=== PATIENT | male | born 1990 | race Caucasian/White ===

== ENCOUNTER 2018-02-10 14:33 | Inpatient (IN) ==
[2018-02-10] MEDS ORDERED: Sod Chloride 0.9% Inj 1,000 ML IV.SIG ONE (14:38)
[2018-02-10] MEDS ORDERED: Naloxone Inj 2 MG/2 ML Vial IV.PUSH ONE (14:38)
--- NOTE | 2018-02-10 14:41 | ED ---
HPI General Chief Complaint: Overdose Stated Complaint: Medical Time Seen by Provider: 02/10/18 14:56 Source: patient and EMS Mode of arrival: EMS Limitations: altered mental status History of Present Illness HPI Narrative: Patient arrives by EMS when he was found to be unresponsive in a truck. He is 27 years old. He denies accidental or intentional drug ingestion and states that he is very sleepy alone. Pt denies drug/alcohol abuse in ER. EMS was preparing to intubate when patient awoke and started speaking revealing HPI as noted. Prior records reveal patient was seen here twice in the past 10 days for heroin overdose. It is reported that he recently broke up with his girlfriend and has had deaths in the family. Vague suicidal ideation reported to prior ED provider. Holt Act started by the undersigned. MD complaint: Reports accidental overdose Onset (ago): unknown Intent: unwilling to say Treatments Prior to Arrival: oxygen Related Data Home Medications Medication Instructions Recorded Confirmed lorazepam [Ativan] 1 mg PO BID 02/11/18 02/11/18 venlafaxine 75 mg PO DAILY 02/11/18 02/11/18 Allergies Allergy/AdvReac Type Severity Reaction Status Date / Time No Known Allergies Allergy Verified 02/11/18 18:51 Review of Systems ROS Unobtainable ROS Unobtainable: unobtainable due to mental condition and unobtainable due to mental status PMFSH Social History Social History Substance History: Active Abuse Second Hand Smoke Exposure: No Smoking Status: Current every day smoker Tobacco Type: Cigarettes How Often Do You Have a Drink Containing Alcohol: Monthly or less Recent Travel in [facility] within the Last 8 Weeks: No Recent Out of Country Travel within the Last 8 Weeks: No Exam Narrative Exam Narrative: GENERAL: Well-nourished well-developed 27-year-old male GCS 13 ( motor 6, verbal 4, eyes 3) SKIN: Perioral cyanosis present. Skin is otherwise warm and intact. HEAD: Atraumatic. Normocephalic. EYES: Pupils are about 3 mm bilaterally and responsive to light. ENT: No nasal bleeding or discharge. Mucous membranes pink and moist. NECK: Trachea midline. No JVD. CARDIOVASCULAR: Regular rate and rhythm. No murmur appreciated. RESPIRATORY: Respiratory rate is approximately 12. Breath sounds are present bilaterally. GASTROINTESTINAL: Abdomen soft, non-tender, nondistended. Hepatic and splenic margins not palpable. MUSCULOSKELETAL: No obvious deformities. No clubbing. No cyanosis. No edema. NEUROLOGICAL: GCS 13. No focal cranial nerve deficit. Pupils equal and reactive. Speech is somewhat slurred consistent with polysubstance overdose PSYCHIATRIC: Unable to determine. Course Initial Documented Vital Signs Pulse Oximetry 98 02/10/18 14:40 Last Documented Vital Signs Temperature 98.3 F 02/12/18 05:17 Pulse Rate 62 02/12/18 05:17 Respiratory Rate 16 02/12/18 05:17 Blood Pressure 110/71 02/12/18 05:17 Pulse Oximetry 98 02/12/18 05:17 Sign Out Sign Out Data: Patient Sign Out occurred on 02/10/18 at 15:10. Patient's care was discussed, and care was transferred from Jose F Park MD to Mandie Choi MD. Sign Out Comment: Patient arrives as an opioid overdose. This is his third overdose in 10 days. He has psychiatric risk factors. Holt Act form signed by me. Anticipate the patient be medically clear. In this scenario I would restrain the patient against his will to stay here and be evaluated such that he does not end his life unintentionally or intentionally. Last updated by Jose F Park MD at 02/10/18 14:58 Post-Handoff Eval: Patient signed out to me, Dr. Choi, by Dr. Park, at 1500. Patient reports "mental health issues." He was placed under a Holt Act by Dr. Park. He is resting comfortably in the ED. Labs show low potassium and calcium, this was replaced. Patient observed without further need for Narcan, he continued to maintain his airway and remained awake and alert. He will be medically cleared for psychiatric screening. Medical Decision Making MDM Narrative Medical decision making narrative: The patient arrives following heroin overdose twice prior in the past 10 days both times requiring an ED visit. He arrives again today after he was found unresponsive in a parking lot. The patient received Narcan and his pulse went from 90-130. We have an ABG revealing a PCO2 of 65. There is a reasonable concern for imminent danger to self. Holt Act paperwork completed by the undersigned. Psych screen ordered along with routine blood work. Case discussed with oncoming provider at 3 PM. Medical clearance is anticipated. Medical Screen Exam Complete: Yes Emergency Medical Condition: Yes Differential Diagnosis Differential Diagnosis: Altered mental status/psychosis due to infection/ environmental exposure/metabolic abnormality, polypharmacy, alcohol abuse/ intoxication, illicit or prescribed drug abuse, malingering/secondary gain, non- organic psychiatric disease Lab Data Lab results reviewed: Yes I reviewed the patient's lab results. Result diagrams: 02/10/18 14:43 02/10/18 14:43 Lab Results 02/10/18 02/10/18 02/10/18 Range/Units 14:30 14:43 14:43 WBC 9.9 D (4.0-11.0) th/mm3 RBC 4.53 (4.50-5.90) mil/mm3 Hgb 15.0 (13.0-17.0) gm/dL Hct 40.2 (39.0-51.0) % MCV 88.8 (80.0-100.0) fL MCH 33.0 (27.0-34.0) pg MCHC 37.2 H (32.0-36.0) % RDW 12.9 (11.6-17.2) % Plt Count 279 (150-450) th/mm3 MPV 9.0 (7.0-11.0) fL Prelim Diff (Auto) Slide review pending Neut % (Auto) 67.4 (16.0-70.0) % Lymph % (Auto) 23.3 (9.0-44.0) % Jack % (Auto) 6.9 (0.0-8.0) % Eos % (Auto) 1.8 (0.0-4.0) % Baso % (Auto) 0.6 (0.0-2.0) % Neut # (Auto) 6.7 (1.8-7.7) th/mm3 Lymph # (Auto) 2.3 (1.0-4.8) th/mm3 Jack # (Auto) 0.7 (0.0-0.9) th/mm3 Eos # (Auto) 0.2 (0.0-0.4) th/mm3 Baso # (Auto) 0.1 (0.0-0.2) th/mm3 WBC Differential . Diff Scan Auto diff confirmed Differential Comment . Platelet Estimate Normal (Normal) Platelet Morphology Normal (Normal) Ovalocytes 1+ H (None) Puncture Site Right radial Patient Temperature 98.6 O2 Saturation 87 L* (90-100) % ABG pH 7.26 L* (7.380-7.420) ABG pCO2 65 H* (38-42) mmHg ABG pO2 72 (61-120) mmHg ABG HCO3 29 H (22-26) mmol/L ABG O2 Content 17.8 (12.0-20.0) Vol % ABG Base Excess 2.2 H (-2-2) mmol/L ABG Methemoglobin 0.7 (0-2) % Lars Test Present Hemoglobin 14.6 (12.0-16.0) G/DL Carboxyhemoglobin 5.9 H* (0-4) % O2 Delivery Device Nasal cannula Liter Flow 3.00 L/M Critical Value Yes Sodium 145 (136-145) meq/L Potassium 3.1 L (3.5-5.1) meq/L Chloride 113 H (98-107) meq/L Carbon Dioxide 22.9 (21.0-32.0) meq/L Anion Gap 9 (5-15) meq/L BUN 13 (7-18) mg/dL Creatinine 0.92 (0.60-1.30) mg/dL Estimated GFR Greater than 89 (>89) mL/min Random Glucose 93 (74-106) mg/dL Calcium 6.7 L* D (8.5-10.1) mg/dL Prot Corrected Calcium 7.5 L (8.5-10.1) mg/dL Magnesium 1.4 L (1.5-2.5) mg/dL Total Bilirubin 0.4 (0.2-1.0) mg/dL AST 10 L (15-37) U/L ALT 18 (12-78) U/L Alkaline Phosphatase 53 (45-117) U/L Troponin I Less than 0.02 L (0.02-0.05) ng/mL Total Protein 5.5 L D (6.4-8.2) g/dL Albumin 2.6 L D (3.4-5.0) g/dL Lipase 62 L (73-393) U/L Salicylates (2.8-20.0) mg/dL Urine Opiates Screen (Neg) Acetaminophen Less than 2.0 L (10.0-30.0) mcg/mL Ur Barbiturates Screen (Neg) Ur Amphetamines Screen (Neg) U Benzodiazepines Scrn (Neg) Urine Cocaine Screen (Neg) U Cannabinoids Screen (Neg) Serum Alcohol Less than 3 (0-5) mg/dL 02/10/18 02/10/18 02/11/18 Range/Units 14:43 15:40 09:50 WBC (4.0-11.0) th/mm3 RBC (4.50-5.90) mil/mm3 Hgb (13.0-17.0) gm/dL Hct (39.0-51.0) % MCV (80.0-100.0) fL MCH (27.0-34.0) pg MCHC (32.0-36.0) % RDW (11.6-17.2) % Plt Count (150-450) th/mm3 MPV (7.0-11.0) fL Prelim Diff (Auto) Neut % (Auto) (16.0-70.0) % Lymph % (Auto) (9.0-44.0) % Jack % (Auto) (0.0-8.0) % Eos % (Auto) (0.0-4.0) % Baso % (Auto) (0.0-2.0) % Neut # (Auto) (1.8-7.7) th/mm3 Lymph # (Auto) (1.0-4.8) th/mm3 Jack # (Auto) (0.0-0.9) th/mm3 Eos # (Auto) (0.0-0.4) th/mm3 Baso # (Auto) (0.0-0.2) th/mm3 WBC Differential Diff Scan Differential Comment Platelet Estimate (Normal) Platelet Morphology (Normal) Ovalocytes (None) Puncture Site Left radial Patient Temperature 98.6 O2 Saturation 94 (90-100) % ABG pH 7.37 L (7.380-7.420) ABG pCO2 47 H (38-42) mmHg ABG pO2 178 H (61-120) mmHg ABG HCO3 26 (22-26) mmol/L ABG O2 Content 18.1 (12.0-20.0) Vol % ABG Base Excess 1.6 (-2-2) mmol/L ABG Methemoglobin 0.8 (0-2) % Lars Test Present Hemoglobin 13.4 (12.0-16.0) G/DL Carboxyhemoglobin 4.6 H (0-4) % O2 Delivery Device Liter Flow L/M Critical Value No Sodium (136-145) meq/L Potassium (3.5-5.1) meq/L Chloride (98-107) meq/L Carbon Dioxide (21.0-32.0) meq/L Anion Gap (5-15) meq/L BUN (7-18) mg/dL Creatinine (0.60-1.30) mg/dL Estimated GFR (>89) mL/min Random Glucose (74-106) mg/dL Calcium (8.5-10.1) mg/dL Prot Corrected Calcium (8.5-10.1) mg/dL Magnesium (1.5-2.5) mg/dL Total Bilirubin (0.2-1.0) mg/dL AST (15-37) U/L ALT (12-78) U/L Alkaline Phosphatase (45-117) U/L Troponin I (0.02-0.05) ng/mL Total Protein (6.4-8.2) g/dL Albumin (3.4-5.0) g/dL Lipase (73-393) U/L Salicylates 2.4 L (2.8-20.0) mg/dL Urine Opiates Screen Pos H (Neg) Acetaminophen (10.0-30.0) mcg/mL Ur Barbiturates Screen Neg (Neg) Ur Amphetamines Screen Neg (Neg) U Benzodiazepines Scrn Pos H (Neg) Urine Cocaine Screen Neg (Neg) U Cannabinoids Screen Neg (Neg) Serum Alcohol (0-5) mg/dL Discharge Plan Discharge Disposition Patient Disposition: 30 Still Patient Physicians Team ED Provider: Mandie Choi Primary Care Provider: UNKNOWN, Rxs /Orders / Referrals /Forms Prescriptions: No Action venlafaxine 75 mg Capsule,Extended Release 24hr 75 mg PO DAILY RF: 0 lorazepam [Ativan] 1 mg Tablet 1 mg PO BID RF: 0 Discharge Interventions Interventions: Vital Signs Last Done: 02/12/18 05:17 Status ED Status: Medically Cleared
[2018-02-10 14:51] LABS: ABG Base Excess 2.2 mmol/L (-2-2); ABG PCO2 65 mmHg (38-42); ABG PO2 72 mmHg (61-120)
[2018-02-10 15:03] LABS: Baso # (Auto) 0.1 th/mm3 (0.0-0.2); Baso % (Auto) 0.6 % (0.0-2.0); Eos # (Auto) 0.2 th/mm3 (0.0-0.4); Eos % (Auto) 1.8 % (0.0-4.0); Hematocrit 40.2 % (39.0-51.0); Lymph # (Auto) 2.3 th/mm3 (1.0-4.8); Lymph % (Auto) 23.3 % (9.0-44.0); Mean Corpuscular Volume 88.8 fL (80.0-100.0); Mono # (Auto) 0.7 th/mm3 (0.0-0.9); Mono % (Auto) 6.9 % (0.0-8.0); Neut # (Auto) 6.7 th/mm3 (1.8-7.7); Neut % (Auto) 67.4 % (16.0-70.0); Platelet Count 279 th/mm3 (150-450); Red Blood Count 4.53 mil/mm3 (4.50-5.90); Red Cell Distribution Width 12.9 % (11.6-17.2); White Blood Count 9.9 th/mm3 (4.0-11.0)
[2018-02-10 15:06] LABS: Mean Corpuscular HGB Conc 37.2 % (32.0-36.0)
[2018-02-10 15:16] LABS: Alanine Aminotransferase 18 U/L (12-78); Albumin 2.6 g/dL (3.4-5.0); Anion Gap 9 meq/L (5-15); Aspartate Aminotransferase 10 U/L (15-37); Blood Urea Nitrogen 13 mg/dL (7-18); Calcium 6.7 mg/dL (8.5-10.1); Carbon Dioxide 22.9 meq/L (21.0-32.0); Chloride 113 meq/L (98-107); Glomerular Filtration Rate Greater Than 89 mL/min (>89); Glucose,Random 93 mg/dL (74-106); Lipase 62 U/L (73-393); Magnesium 1.4 mg/dL (1.5-2.5); Potassium 3.1 meq/L (3.5-5.1); Sodium 145 meq/L (136-145)
[2018-02-10 15:23] LABS: Total Protein 5.5 g/dL (6.4-8.2)
[2018-02-10 15:24] LABS: Alkaline Phosphatase 53 U/L (45-117)
[2018-02-10] MEDS ORDERED: Calcium Carbonate 500 MG Tablet PO ONE (15:29)
[2018-02-10 15:30] LABS: Ovalocytes 1+; Platelet Estimate Normal (Normal); Platelet Morphology Normal (Normal)
[2018-02-10 16:03] LABS: ABG Base Excess 1.6 mmol/L (-2-2); ABG PCO2 47 mmHg (38-42); ABG PO2 178 mmHg (61-120)
[2018-02-11 10:26] LABS: Amphetamine Screen,Urine Neg (Neg); Barbiturate Screen,Urine Neg (Neg); Cannabinoid Screen,Urine Neg (Neg); Cocaine Screen,Urine Neg (Neg)
[2018-02-11 11:04] LABS: Opiate Screen,Urine Pos (Neg)
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
[2018-02-12] MEDS ORDERED: LORazepam 1 MG Tablet PO ONE (17:43)
--- NOTE | 2018-02-13 13:01 | P.CONPSY ---
Provisional Diagnosis Admission Date: February 10, 2018 14:33 [place] I.: 1. Major depressive disorder, recurrent, severe without psychotic features 2. Opioid use disorder [place] II.: Deferred History of Present Illness Service: Psychiatry Consult date: 02/13/18 Requesting Physician: Jose F Park Reason for Consult: Holt Act Primary Care Provider: UNKNOWN History of Present Illness: Mr. Mccarty is a 27-year-old male with a reported history of depression who presented initially to the ED in the setting of opioid overdose, his third in the past 2 weeks it appears. Patient was evaluated by the psychiatric nurse practitioner who continued the Holt act initiated by the ED provider and obtained concerning collateral information from the patient's father. Electronic medical record reviewed. Patient seen and examined. Chart reviewed. Case discussed with nurse in the J pod. Nurse reports that attempts have been made to find the patient an inpatient psychiatric bed under the Holt act without success so far. On my examination today, the patient becomes increasingly tearful describing his multiple stressors including recent breakup with girlfriend and father's struggle with colorectal cancer. He tells me that he has fallen "into a really deep depression." He endorses anhedonia and seems quite withdrawn. He endorses social withdrawal and says that he has stayed in his apartment for a week at a time since the onset of this episode. He says that he has turned to heroin use to try to manage his depressive symptoms. He presently denies suicidal ideation but seems unreliable to contract for safety. No hypomanic or manic symptoms. He denies any audiovisual hallucinations. No delusional material elicited. The remainder of the psychiatric ROS is negative. Patient denies any symptoms of opioid withdrawal but does report some SNRI withdrawal symptoms. No other acute physical complaints. Patient is requesting discharge from the ED. Past psychiatric history: Patient reports a history of depression. He follows at the [facility] and his dose of Effexor was reportedly recently increased to 150 mg daily. He does report some withdrawal symptoms from being without his Effexor. He denies a history of psychiatric admissions or suicide attempts. Family history: The patient denies a family history of serious mental illness or suicide. Chemical dependency history: The patient reports a history of Suboxone use in the past. He started using heroin for the first time in his life a few weeks ago, and each of the 3 times that he has used it he has become so intoxicated as to require the ED visit. He clearly states that he started using heroin because of his depression. 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 He recently broke up with his girlfriend. He denies any access to guns or firearms. He denies any particular scientologist or spiritual believes. Review of Systems All other systems reviewed negative except as stated in HPI PMFSH - History History Provided By: Patient - Medical History Medical History: Medical History (Last Reviewed 02/10/18 @ 14:39 by Giselle Wilkinson) Drug abuse and dependence - Surgical History Surgical History: Surgical History (Last Reviewed 02/10/18 @ 14:39 by Giselle Wilkinson) No pertinent past surgical history - Tobacco History Second Hand Smoke Exposure: No Tobacco Use In Past 30 Days: Yes Smoking Status: Current every day smoker Tobacco Type: Cigarettes - Alcohol History How Often Do You Have a Drink Containing Alcohol: Monthly or less - Substance Use History Substance History: Active Abuse - Substance Use Type Heroin Status: Active Reason for Use: Get High - Travel History Recent Travel in the USA Within the Last 8 Weeks: No Recent Travel Out of the Country Within the Last 8 Weeks: No - Immunization History Tetanus Immunization: <5 Years Medications and Allergies Active Medications: Active Medications Sodium Chloride (Ns Flush) 2 ml IV.FLUSH PRN PRN PRN Reason: FLUSH AFTER USING IV ACCESS Allergies Allergy/AdvReac Type Severity Reaction Status Date / Time No Known Allergies Allergy Verified 02/11/18 18:51 Home Medications Medication Instructions Recorded Confirmed Type lorazepam [Ativan] 1 mg PO BID 02/11/18 02/11/18 History venlafaxine 75 mg PO DAILY 02/11/18 02/11/18 History Exam Vital signs: Vital Signs 02/12/18 13:27 02/12/18 17:23 02/12/18 18:22 Temperature 97.9 F Pulse Rate 78 79 80 Respiratory Rate 18 18 18 Blood Pressure 128/71 119/76 107/66 Pulse Oximetry 99 100 02/12/18 22:16 02/13/18 06:21 Temperature Pulse Rate 58 L 94 H Respiratory Rate 16 16 Blood Pressure 109/60 101/58 L Pulse Oximetry 100 100 Narrative: Physical examination was completed by the ED provider. On my examination today , the patient appears to be in no acute physical distress. No signs of intoxication or withdrawal noted. No motor abnormalities noted. Labs and vital signs reviewed: Laboratory Tests 02/10/18 02/10/18 02/11/18 14:43 14:43 09:50 WBC 9.9 D Hgb 15.0 Plt Count 279 Sodium 145 Potassium 3.1 L Chloride 113 H Carbon Dioxide 22.9 BUN 13 Creatinine 0.92 Estimated GFR Greater than 89 AST 10 L ALT 18 Alkaline Phosphatase 53 Urine Opiates Screen Pos H U Benzodiazepines Scrn Pos H Serum Alcohol Less than 3 Mental Status Examination Appearance: Disheveled Consciousness: Alert Orientation: x4 Motor Activity: Normal gait Speech: Unremarkable Language: Adequate Fund of Knowledge: Adequate Attention and Concentration: Adequate Memory: Unremarkable Mood: Anxious, Other (Depressed) Affect: Other (Restricted, tearful at times) Thought Process & Associations: Intact, Logical, Goal directed Thought Content: Appropriate Hallucination Type: None Delusion Type: None Suicidal Ideation: No (Unreliable to contract for safety) Suicidal Plan: No Suicidal Intention: No Homicidal Ideation: No Homicidal Plan: No Homicidal Intention: No Insight: Poor Judgment: Impulsive Assessment and Plan - Assessment (1) Major depressive disorder Code(s): F32.9 - Major depressive disorder, single episode, unspecified Status : Acute (2) Opioid use disorder Code(s): F11.99 - Opioid use, unspecified with unspecified opioid-induced disorder Status: Acute - Plan Plan: 27-year-old male with psychiatric history as detailed above who is presently in the ED under a Holt act. Patient by his own report has recently started using heroin to manage depressive symptoms resulting in 3 overdoses of sufficient severity to require emergent intervention. Even if these were not intentional, suicidal overdoses, patient is placing himself at high risk for self-harm by this behavior. Inasmuch as his heroin use is secondary to his depressive symptomatology, I think ongoing evaluation and management under the Holt act is appropriate. Patient's Holt act will shortly without available inpatient psychiatric bed. Given ongoing concerns for impairment in safety, I will initiate a petition for involuntary psychiatric hospitalization and have consulted Dr. Samuel for a second opinion. I concur with the psychiatric nurse practitioner that a dual diagnosis unit would be the ideal placement for this patient, although initiation of a petition for involuntary psychiatric hospitalization may necessitate admission to one of the inpatient psychiatric unit here when capacity becomes available. Patient reports no opioid withdrawal symptoms but does report SNRI withdrawal symptoms, and I have taken the liberty of resuming his Effexor now. --Holt act remains in place. I have initiated a petition for involuntary psychiatric hospitalization under the Holt act and have consulted for a second opinion. --Case discussed with nurse and J bonny who continues to try to arrange for inpatient psychiatric services for this patient. Recommend continued close observation in the ED until transfer to inpatient psychiatric bed can be arranged. Justification for Continued Inpatient Stay: N/A. (1) Major depressive disorder Qualifiers: Major depression recurrence: recurrent Active/Remission status: currently active Major depression episode severity: severe Psychotic features: without psychotic features Qualified Code(s): F33.2 - Major depressive disorder, recurrent severe without psychotic features
--- NOTE | 2018-02-13 13:30 | P.PNPSY ---
Subjective Remarks: This is a request for second opinion. Admission note was reviewed and I agree with the history. Patient was seen and case was discussed with nursing. Patient is minimizing his recent overdoses. He does admit to recent depressed mood and various stressors including school. Per record, pt made suicidal statements to the ER doctor. Mental Status Examination Appearance: Disheveled Consciousness: Alert Orientation: x4 Motor Activity: Normal gait Speech: Unremarkable Language: Adequate Fund of Knowledge: Adequate Attention and Concentration: Adequate Memory: Unremarkable Mood: Anxious, Other (Depressed) Affect: Other (Restricted, tearful at times) Thought Process & Associations: Intact, Logical, Goal directed Thought Content: Appropriate Hallucination Type: None Delusion Type: None Suicidal Ideation: Yes (Unreliable to contract for safety) Suicidal Plan: No Suicidal Intention: No Homicidal Ideation: No Homicidal Plan: No Homicidal Intention: No Insight: Poor Judgment: Impulsive Assessment and Plan - Assessment (1) Major depressive disorder Code(s): F32.9 - Major depressive disorder, single episode, unspecified Status : Acute (2) Opioid use disorder Code(s): F11.99 - Opioid use, unspecified with unspecified opioid-induced disorder Status: Acute - Plan Plan: I agree with the first opinion to continue petition. Criteria include severe depression, concern for lack of self-care, recent overdoses, and ineffective psychiatric medication at home. Justification for Continued Inpatient Stay: Patient would decompensate in a less restrictive setting (1) Major depressive disorder Qualifiers: Major depression recurrence: recurrent Active/Remission status: currently active Major depression episode severity: severe Psychotic features: without psychotic features Qualified Code(s): F33.2 - Major depressive disorder, recurrent severe without psychotic features
[2018-02-13] MEDS: Venlafaxine XR 75 MG Capsule PO SCH (14:32)
[2018-02-13] MEDS ORDERED: Melatonin 5 MG Tablet PO ONE (23:23)
[2018-02-14] MEDS: Venlafaxine XR 75 MG Capsule PO SCH (09:23)
--- NOTE | 2018-02-14 14:11 | P.HPPSY ---
Provisional Diagnosis Admission Date: February 10, 2018 14:33 [place] I.: 1. Major depressive disorder, recurrent, severe without psychotic features 2. Opioid use disorder [place] II.: Deferred Competence Certification of Person's Competence To Provide Express and Informed Consent I have personally examined Tate Mccarty, a person being served at [facility] on, February 14, 2018 1407. Express and informed consent means consent voluntarily given in writing, by a competent person, after sufficient explanation and disclosure of the subject matter involved to enable the person to make a knowing and willful decision without any element of force, fraud, deceit, duress, or other form of constraint or coercion. This person is 18 years of age or older, is not now known to be incompetent to consent to treatment with a guardian advocate, and does not have a health care surrogate or proxy currently making medical treatment decisions. I have found this person to be one of the following: [] Competent to provide express and informed consent, as defined above, for voluntary admission to this facility and is competent to provide express and informed consent for treatment. He/she has the consistent capacity to make well reasoned, willful, and knowing decisions concerning his or her medical or mental health treatment. The person fully and consistently understands the purpose of the admission for examination/placement and is fully capable of personally exercising all rights assured [place] [] Incompetent to provide express and informed consent to voluntary admission, and this is incompetent to provide express and informed consent to treatment. The person must be transferred to involuntary status and a petition for a guardian advocate filed with the Circuit Court. [] Refusing to provide express and informed consent to voluntary admission but is competent to provide express and informed consent for treatment. The person must be discharged or transferred to involuntary status. Form shall be completed within 24 hours of a person's arrival at the receiving facility and filed in the clinical record of each person: 1. Admitted on a voluntary basis 2. Permitted to provide express and informed consent to his/her own treatment 3. Allowed to transfer from involuntary to voluntary status 4. Prior to permitting a person to consent to his or her own treatment after having been previously found incompetent to consent to treatment. History of Present Illness Capacity: Has capacity History of Present Illness: Mr. Mccarty is a 27-year-old male with a reported history of depression who presented initially to the ED in the setting of opioid overdose, his third in the past 2 weeks it appears. Patient was evaluated by the psychiatric nurse practitioner who continued the Holt act initiated by the ED provider and obtained concerning collateral information from the patient's father. Electronic medical record reviewed. Patient seen and examined. Chart reviewed. Case discussed with nurse in the J pod. Nurse reports that attempts have been made to find the patient an inpatient psychiatric bed under the Holt act without success so far. On my examination today, the patient becomes increasingly tearful describing his multiple stressors including recent breakup with girlfriend and father's struggle with colorectal cancer. He tells me that he has fallen "into a really deep depression." He endorses anhedonia and seems quite withdrawn. He endorses social withdrawal and says that he has stayed in his apartment for a week at a time since the onset of this episode. He says that he has turned to heroin use to try to manage his depressive symptoms. He presently denies suicidal ideation but seems unreliable to contract for safety. No hypomanic or manic symptoms. He denies any audiovisual hallucinations. No delusional material elicited. The remainder of the psychiatric ROS is negative. Patient denies any symptoms of opioid withdrawal but does report some SNRI withdrawal symptoms. No other acute physical complaints. Patient is requesting discharge from the ED. 02/14/2018 the patient was seen today for psychiatric reevaluation. The patient reports that he continues to be depressed, hopeless, helpless, with increased emptiness sensation, having intermittent suicidal thoughts, no specific plan at the moment. The patient wished to be admitted in psychiatry, to restart psychotropics and to engage in some type of rehabilitation of drugs. During the evaluation the patient is tearful,asking for help, he was able to contract for safety. He denies homicidal ideation, denies visual and auditory hallucination 3. Past psychiatric history: Patient reports a history of depression. He follows at the [facility] and his dose of Effexor was reportedly recently increased to 150 mg daily. He does report some withdrawal symptoms from being without his Effexor. He denies a history of psychiatric admissions or suicide attempts. Family history: The patient denies a family history of serious mental illness or suicide. Chemical dependency history: The patient reports a history of Suboxone use in the past. He started using heroin for the first time in his life a few weeks ago, and each of the 3 times that he has used it he has become so intoxicated as to require the ED visit. He clearly states that he started using heroin because of his depression. 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 He recently broke up with his girlfriend. He denies any access to guns or firearms. He denies any particular confucianism or spiritual believes. [facility] - History History Provided By: Patient - Medical History Medical History: Medical History (Last Reviewed 02/10/18 @ 14:39 by Giselle Wilkinson) Drug abuse and dependence - Surgical History Surgical History: Surgical History (Last Reviewed 02/10/18 @ 14:39 by Giselle Wilkinson) No pertinent past surgical history - Tobacco History Second Hand Smoke Exposure: No Tobacco Use In Past 30 Days: Yes Smoking Status: Current every day smoker Tobacco Type: Cigarettes - Alcohol History How Often Do You Have a Drink Containing Alcohol: Monthly or less - Substance Use History Substance History: Active Abuse - Substance Use Type Heroin Status: Active Reason for Use: Get High - Travel History Recent Travel in the [place] Within the Last 8 Weeks: No Recent Travel Out of the Country Within the Last 8 Weeks: No - Immunization History Tetanus Immunization: <5 Years Medications and Allergies Active Medications: Active Medications Sodium Chloride (Ns Flush) 2 ml IV.FLUSH PRN PRN PRN Reason: FLUSH AFTER USING IV ACCESS Venlafaxine HCl (Effexor Xr) 75 mg PO DAILY WILLIS Last Admin: 02/14/18 09:23 Dose: 75 mg Allergies Allergy/AdvReac Type Severity Reaction Status Date / Time No Known Allergies Allergy Verified 02/11/18 18:51 Home Medications Medication Instructions Recorded Confirmed Type lorazepam [Ativan] 1 mg PO BID 02/11/18 02/11/18 History venlafaxine 75 mg PO DAILY 02/11/18 02/11/18 History Results - Labs CBC & Chem 7: 02/10/18 14:43 02/10/18 14:43 Exam Vital signs: Vital Signs 02/13/18 18:17 02/13/18 23:43 02/14/18 04:24 Temperature 97.5 F L 97.4 F L Pulse Rate 98 H 69 73 Respiratory Rate 18 16 16 Blood Pressure 135/85 132/69 117/57 L Pulse Oximetry 100 99 97 Mental Status Examination Appearance: Disheveled Consciousness: Alert Orientation: x4 Motor Activity: Normal gait Speech: Unremarkable Language: Adequate Fund of Knowledge: Adequate Attention and Concentration: Adequate Memory: Unremarkable Mood: Anxious, Other (Depressed) Affect: Other (Restricted, tearful at times) Thought Process & Associations: Intact, Logical, Goal directed Thought Content: Appropriate Hallucination Type: None Delusion Type: None Suicidal Ideation: Yes (Unreliable to contract for safety) Suicidal Plan: No Suicidal Intention: No Homicidal Ideation: No Homicidal Plan: No Homicidal Intention: No Insight: Poor Judgment: Impulsive Assessment and Plan - Assessment (1) Major depressive disorder Code(s): F32.9 - Major depressive disorder, single episode, unspecified Status : Acute (2) Opioid use disorder Code(s): F11.99 - Opioid use, unspecified with unspecified opioid-induced disorder Status: Acute - Plan Plan: Patient will continue the process of psychiatric admission for stabilization and safety. Increase Effexor 150 mg, start gabapentin 300 mg 3 times daily for anxiety. Second opinion completed by Dr. mcadams Justification for Continued Inpatient Stay: Psychiatric admission for stabilization (1) Major depressive disorder Qualifiers: Major depression recurrence: recurrent Active/Remission status: currently active Major depression episode severity: severe Psychotic features: without psychotic features Qualified Code(s): F33.2 - Major depressive disorder, recurrent severe without psychotic features
[2018-02-14] MEDS ORDERED: Bisacodyl 10 MG Supp RECTAL PRN (14:12)
[2018-02-14] MEDS ORDERED: Aluminum/Magnesium/Simethacone Susp 30 ML UDC PO PRN (14:12)
--- NOTE | 2018-02-14 14:47 | ECG ---
Date Performed: 02/10/2018 Time Performed: 14:39:04 PTAGE: 27 years EKG: SINUS TACHYCARDIA WITH SHORT SC INTERVAL NONSPECIFIC T-WAVE ABNORMALITY ABNORMAL RHYTHM ECG NO PREVIOUS TRACING DOCTOR: Jose Guadalupe Blackwood Interpretating Date/Time 02/14/2018 14:43:45
[2018-02-14] MEDS: Senna/Docusate Sodium 8.6/50 MG Tablet PO SCH (21:23)
[2018-02-15] MEDS: Venlafaxine XR 75 MG Capsule PO SCH (08:27)
[2018-02-15 10:58] LABS: Carbon Dioxide 29.1 meq/L (21.0-32.0); Potassium 4.4 meq/L (3.5-5.1)
[2018-02-15 11:00] LABS: Chol/HDL Ratio 4.73 Ratio; HDL Cholesterol 35.7 mg/dL (40.0-60.0)
[2018-02-15] MEDS: Senna/Docusate Sodium 8.6/50 MG Tablet PO SCH ×2 (11:27→20:15)
[2018-02-15 12:12] LABS: Hemoglobin A1c 5.3 % (4.3-6.0)
--- NOTE | 2018-02-15 13:24 | P.PNPSY ---
Subjective Remarks: Reviewed electronic medical records and discussed case with staff. Follow-up was conducted in the hallway with SHITAL Ramos present. Staff advised that he has been quiet but interacting with other patients and attending groups. He has been compliant with his care. Patient states that he feels "fantastic". Although he does state he did not sleep well last night at all. He reports some anxiety when he thinks about "getting life figured out". He reports that appetite's been good and denies any side effects from medication. He does state that he is currently working on a discharge plan which would involve seeing a [place] therapist. He also reports his father is flying in from [place] with a plan to collect him once discharged. His nurse reports that he has not had any behavioral disturbances during his time on the unit so I am having him moved to the 2600 unit. Mental Status Examination Appearance: Disheveled Consciousness: Alert Orientation: x4 Motor Activity: Normal gait Speech: Unremarkable Language: Adequate Fund of Knowledge: Adequate Attention and Concentration: Adequate Memory: Unremarkable Mood: Anxious, Other (Depressed) Affect: Other (Restricted, tearful at times) Thought Process & Associations: Intact, Logical, Goal directed Thought Content: Appropriate Hallucination Type: None Delusion Type: None Suicidal Ideation: Yes (Unreliable to contract for safety) Suicidal Plan: No Suicidal Intention: No Homicidal Ideation: No Homicidal Plan: No Homicidal Intention: No Insight: Poor Judgment: Impulsive Assessment and Plan - Assessment (1) Major depressive disorder Code(s): F32.9 - Major depressive disorder, single episode, unspecified Status : Acute - Plan Plan: Patient will be reevaluated by the attending psychiatrist. Continue with current treatment plan. Justification for Continued Inpatient Stay: Moving this patient to a less restrictive environment would likely result in decompensation. (1) Major depressive disorder Qualifiers: Major depression recurrence: recurrent Active/Remission status: currently active Major depression episode severity: severe Psychotic features: without psychotic features Qualified Code(s): F33.2 - Major depressive disorder, recurrent severe without psychotic features
[2018-02-16] MEDS: Venlafaxine XR 75 MG Capsule PO SCH (08:31)
[2018-02-16] MEDS: Senna/Docusate Sodium 8.6/50 MG Tablet PO SCH ×2 (11:05→21:00)
--- NOTE | 2018-02-16 13:17 | P.PNPSY ---
Subjective Remarks: The patient was seen today for psychiatric reevaluation. The patient is found the recreational area of the unit, he is integrated to a group therapy, but was able to cooperate, he reports feeling much better, with an improved mood, having difficulty to sleep at night, with racing thoughts, preoccupations. The patient has been more positive, focus in the future, and treatment for drugs, at the moment was able to contract for safety, denies suicidal intentions, denies homicidal ideation, he denies visual and auditory hallucinations. Compliant medications, no significant side effects. Mental Status Examination Appearance: Disheveled Consciousness: Alert Orientation: x4 Motor Activity: Normal gait Speech: Unremarkable Language: Adequate Fund of Knowledge: Adequate Attention and Concentration: Adequate Memory: Unremarkable Mood: Anxious, Other (Depressed) Affect: Other (Restricted, tearful at times) Thought Process & Associations: Intact, Logical, Goal directed Thought Content: Appropriate Hallucination Type: None Delusion Type: None Suicidal Ideation: No (Unreliable to contract for safety) Suicidal Plan: No Suicidal Intention: No Homicidal Ideation: No Homicidal Plan: No Homicidal Intention: No Insight: Poor Judgment: Impulsive Assessment and Plan - Assessment (1) Major depressive disorder Code(s): F32.9 - Major depressive disorder, single episode, unspecified Status : Acute (2) Opioid use disorder Code(s): F11.99 - Opioid use, unspecified with unspecified opioid-induced disorder Status: Acute - Plan Plan: Will increase Effexor to 150 mg daily, will add Seroquel 50 mg at bedtime to help with sleep and intrusive thoughts. Support, motivational psych education provided. Justification for Continued Inpatient Stay: Continue admission (1) Major depressive disorder Qualifiers: Major depression recurrence: recurrent Active/Remission status: currently active Major depression episode severity: severe Psychotic features: without psychotic features Qualified Code(s): F33.2 - Major depressive disorder, recurrent severe without psychotic features
[2018-02-16] MEDS: QUEtiapine 25 MG Tablet PO SCH (21:00)
[2018-02-16] MEDS ORDERED: QUEtiapine 25 MG Tablet PO SCH (22:00)
--- NOTE | 2018-02-17 08:38 | P.PNPSY ---
Subjective Remarks: The patient was seen today for psychiatric reevaluation. Patient is calm, cooperative, pleasant, reporting that he feels much better today. Patient also reported that he had a better sleep last night, but has been having episodic withdrawal symptoms consisting mostly in sweating, skin itching, body pain. He reports improved mood, seems to be motivated to engage in a rehabilitation program, he is future oriented, denies suicidal ideation, denies visual and auditory hallucinations. Mental Status Examination Appearance: Disheveled Consciousness: Alert Orientation: x4 Motor Activity: Normal gait Speech: Unremarkable Language: Adequate Fund of Knowledge: Adequate Attention and Concentration: Adequate Memory: Unremarkable Mood: Anxious, Other (Depressed) Affect: Other (Restricted, tearful at times) Thought Process & Associations: Intact, Logical, Goal directed Thought Content: Appropriate Hallucination Type: None Delusion Type: None Suicidal Ideation: No (Unreliable to contract for safety) Suicidal Plan: No Suicidal Intention: No Homicidal Ideation: No Homicidal Plan: No Homicidal Intention: No Insight: Poor Judgment: Impulsive Assessment and Plan - Assessment (1) Major depressive disorder Code(s): F32.9 - Major depressive disorder, single episode, unspecified Status : Acute (2) Opioid use disorder Code(s): F11.99 - Opioid use, unspecified with unspecified opioid-induced disorder Status: Acute - Plan Plan: Patient continues to show good response to psychotropic regimen. We will add clonidine 0.2 mg every 8 hours as needed opiate withdrawal, Benadryl 50 mg every 8 hours as needed opiate withdrawal. Support, motivational psychoeducation provided. Justification for Continued Inpatient Stay: Increased chance to decompensate at a lower level of care. (1) Major depressive disorder Qualifiers: Major depression recurrence: recurrent Active/Remission status: currently active Major depression episode severity: severe Psychotic features: without psychotic features Qualified Code(s): F33.2 - Major depressive disorder, recurrent severe without psychotic features
[2018-02-17] MEDS: Senna/Docusate Sodium 8.6/50 MG Tablet PO SCH ×2 (08:41→21:12)
[2018-02-17] MEDS: Venlafaxine XR 75 MG Capsule PO SCH (08:41)
[2018-02-17] MEDS: QUEtiapine 25 MG Tablet PO SCH (21:12)
[2018-02-18] MEDS: Senna/Docusate Sodium 8.6/50 MG Tablet PO SCH ×2 (08:56→20:43)
[2018-02-18] MEDS: Venlafaxine XR 75 MG Capsule PO SCH (08:56)
--- NOTE | 2018-02-18 13:12 | P.DSPSY ---
Psychiatry Discharge Summary Inpatient Psychiatric care?: Yes Advance Directives: No Reason for Unknown:: Other Mental Health Advance Directive: No Health Care Proxy: Yes - Admission Admission Date: February 14, 2018 14:58 - Admission Diagnosis (1) Substance induced mood disorder Code(s): F19.94 - Other psychoactive substance use, unspecified with psychoactive substance-induced mood disorder Brief History: Mr. Mccarty is a 27-year-old male with a reported history of depression who presented initially to the ED in the setting of opioid overdose, his third in the past 2 weeks it appears. Patient was evaluated by the psychiatric nurse practitioner who continued the Holt act initiated by the ED provider and obtained concerning collateral information from the patient's father. Electronic medical record reviewed. Patient seen and examined. Chart reviewed. Case discussed with nurse in the J pod. Nurse reports that attempts have been made to find the patient an inpatient psychiatric bed under the Holt act without success so far. On my examination today, the patient becomes increasingly tearful describing his multiple stressors including recent breakup with girlfriend and father's struggle with colorectal cancer. He tells me that he has fallen "into a really deep depression." He endorses anhedonia and seems quite withdrawn. He endorses social withdrawal and says that he has stayed in his apartment for a week at a time since the onset of this episode. He says that he has turned to heroin use to try to manage his depressive symptoms. He presently denies suicidal ideation but seems unreliable to contract for safety. No hypomanic or manic symptoms. He denies any audiovisual hallucinations. No delusional material elicited. The remainder of the psychiatric ROS is negative. Patient denies any symptoms of opioid withdrawal but does report some SNRI withdrawal symptoms. No other acute physical complaints. Patient is requesting discharge from the ED. 02/14/2018 the patient was seen today for psychiatric reevaluation. The patient reports that he continues to be depressed, hopeless, helpless, with increased emptiness sensation, having intermittent suicidal thoughts, no specific plan at the moment. The patient wished to be admitted in psychiatry, to restart psychotropics and to engage in some type of rehabilitation of drugs. During the evaluation the patient is tearful,asking for help, he was able to contract for safety. He denies homicidal ideation, denies visual and auditory hallucination 3. Past psychiatric history: Patient reports a history of depression. He follows at the [facility] and his dose of Effexor was reportedly recently increased to 150 mg daily. He does report some withdrawal symptoms from being without his Effexor. He denies a history of psychiatric admissions or suicide attempts. Family history: The patient denies a family history of serious mental illness or suicide. Chemical dependency history: The patient reports a history of Suboxone use in the past. He started using heroin for the first time in his life a few weeks ago, and each of the 3 times that he has used it he has become so intoxicated as to require the ED visit. He clearly states that he started using heroin because of his depression. 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 He served in the [employer]. He recently broke up with his girlfriend. He denies any access to guns or firearms. He denies any particular tenriism or spiritual believes. Tobacco Use In Past 30 Days: Yes How Often Do You Have a Drink Containing Alcohol: Never Hospital Course: Patient was admitted initially to symptomatology of depression and opiate withdrawal. He also had ambivalent suicidal ideation. He was transferred initially to 2700 unit posteriorly transferred to 2600. Initial psychosocial psychiatric assessment were performed. Safety measures were taken. The patient was started in Effexor 37.5 mg that was titrated up to 150 mg also Seroquel 50 mg at bedtime, he was started in individual and group therapies, and also in clonidine 0.2 mg p.o. every 8 hours as needed opiate withdrawal. The patient showed good response to this regimen, from being very irritable, depressed, the patient came back to baseline at about 3-4 days, which the patient became more engageable, future oriented, insightful about his medical, psychiatric condition and addiction problem. During the hospitalization the patient was initially calm, cooperative, compliant with medications, no aggressive, no agitated. Psychiatric team spoke with his father and multiple occasions to coordinate discharge plan. The patient's father agreed to come to pick the patient is up Wednesday morning and take him to a rehabilitation center. At the moment of the discharge the patient is in a good mood, at baseline, denies hopelessness, and a HEPAS, denies anhedonia, denies suicidal and homicidal ideation, denies anxiety, denies visual and auditory hallucinations. He is oriented x3. - Discharge Discharge Date: 02/18/18 - Discharge Diagnosis (1) Major depressive disorder Code(s): F32.9 - Major depressive disorder, single episode, unspecified Status : Acute Discharge Disposition: Home - Discharge Time > 30 minutes Mental Status Examination Appearance: Appropriate Consciousness: Alert Orientation: x4 Motor Activity: Normal gait Speech: Unremarkable Language: Adequate Fund of Knowledge: Adequate Attention and Concentration: Adequate Memory: Unremarkable Mood: Good Affect: Appropriate, Irritable Thought Process & Associations: Intact, Logical, Goal directed Thought Content: Appropriate Hallucination Type: None Delusion Type: None Suicidal Ideation: No (Unreliable to contract for safety) Suicidal Plan: No Suicidal Intention: No Homicidal Ideation: No Homicidal Plan: No Homicidal Intention: No Insight: Adequate Judgment: Adequate Discharge/Advance Care Plan - Results Vital Signs: Last Vital Signs Temp 97.8 F 02/18/18 05:11 Pulse 52 L 02/18/18 05:11 Resp 18 02/18/18 05:11 BP 112/63 02/18/18 05:11 Pulse Ox 96 02/18/18 05:11 Lab Results: Laboratory Results Hemoglobin A1c 5.3 % (4.3-6.0) 02/15/18 10:02 Triglycerides 98 mg/dL (42-150) 02/15/18 10:02 Cholesterol 169 mg/dL (120-200) 02/15/18 10:02 LDL Cholesterol, Calc 114 mg/dL (0-99) H 02/15/18 10:02 HDL Cholesterol 35.7 mg/dL (40.0-60.0) L 02/15/18 10:02 Summary of Procedures: None Pending Results: None - Medications Number of antipsychotic medications at discharge: 1 - Discharge Care Plan Goals to Promote Your Health: * To prevent worsening of your condition and complications * To maintain your health at the optimal level Directions to Meet Your Goals: Take your medications as prescribed Follow your dietary instruction Follow activity as directed Keep your appointments as scheduled Take your immunizations and boosters as scheduled If your symptoms worsen call your PCP, if no PCP go to Urgent Care Center or Emergency Room For 09/11 questions related to your inpatient stay or results of tests pending at discharge, please contact Dr. Christopher South MD at Smoking is Dangerous to Your Health. Avoid second hand smoking (1) Major depressive disorder Qualifiers: Major depression recurrence: recurrent Active/Remission status: currently active Major depression episode severity: severe Psychotic features: without psychotic features Qualified Code(s): F33.2 - Major depressive disorder, recurrent severe without psychotic features
[2018-02-18] MEDS: QUEtiapine 25 MG Tablet PO SCH (20:43)
[2018-02-19] MEDS: Venlafaxine XR 75 MG Capsule PO SCH (08:47)
[2018-02-19] MEDS: Senna/Docusate Sodium 8.6/50 MG Tablet PO SCH (08:49)
== END 2018-02-19 13:10 | disposition home or self-care (01) ==
LOC: NEPE 14:33 → NEDA 02-12 14:58 → H270 02-14 16:33 → H260 02-15 16:52
PROVIDERS: ADMIT Psychiatry & Neurology Psychiatry; ATTEND Psychiatry & Neurology Psychiatry